=== PATIENT | female | born 2005 | race Caucasian/White ===

== ENCOUNTER 2025-03-18 07:49 | Emergency (ER) | payer MEDICAID ==
[~2025-03-18] VITALS: Ht 157.5 cm; Wt 113.3 kg
[2025-03-18 08:02] VITALS: TEMP 36.8; O2SAT 100
[2025-03-18] MEDS: KETOROLAC 30MG/ML VIAL IM ONE (09:30)
[2025-03-18 09:48] LABS: BASOPHILS % 1.4 % (0.0-2.0); EOSINOPHILS % 3.7 % (0.0-5.0); HEMATOCRIT. 40.6 % (36.0-48.0); HEMOGLOBIN. 13.1 g/dL (12.0-16.0); LYMPHOCYTES % 36.7 % (20.0-50.0); MEAN PLATELET VOLUME 9.1 fl (7.4-10.4); MONOCYTES % 6.7 % (2.0-8.0); NEUTROPHILS % 51.5 % (40.0-76.0); PLATELET 315 x1000/uL (130-400); RED BLOOD CELL COUNT 5.25 mill/uL (4.2-5.4); RED CELL DISTRIBUTION WIDTH 14.7 % (11.6-14.6)
[2025-03-18 10:02] LABS: CREATININE 0.8 mg/dL (0.6-1.0); UREA NITROGEN BLOOD 7 mg/dL (9-23)
[2025-03-18 10:03] LABS: C REACTIVE PROTEIN HIGH SENS 8.65 mg/l (<1.00)
[2025-03-18 10:04] LABS: ASPARTATE AMINOTRANSFERASE 18 IU/L (<34); BILIRUBIN TOTAL 0.4 mg/dL (0.1-1.0); PROTEIN TOTAL 7.2 g/dL (6.0-8.3)
[2025-03-18 10:06] LABS: T4 FREE 1.18 ng/dL (0.89-1.76)
[2025-03-18 10:07] LABS: HCG SCREEN NEGATIVE
[2025-03-18 10:44] LABS: ERYTHROCYTE SEDIMENTATION RATE 6 mm/hr (0-20)
[2025-03-18] MEDS ORDERED: IBUP-2029 MT (11:20)
[2025-03-18 11:29] VITALS: BP 126/80; PULSE 59; RESP 16; O2SAT 100
== END 2025-03-18 11:55 | disposition home or self-care (01) ==
LOC: ER 07:49
DX: R51.9 Headache, unspecified (principal); M79.605 Pain in left leg; M79.604 Pain in right leg; R07.89 Other chest pain
CPT/HCPCS: 80053; 81025; 82550; 84703; 84439; 86141; 84443; 85025; 85651; 36415; 96372; 99283; J1885; Z7610

== ENCOUNTER 2025-04-21 10:59 | Emergency (ER) | payer MEDICAID, OTHER ==
[~2025-04-21] VITALS: Ht 157.5 cm; Wt 105.0 kg
[~2025-04-21 10:59] MED LIST: IBUP-1455 MT
[2025-04-21 11:08] VITALS: O2SAT 99
[2025-04-21 11:27] VITALS: BP 158/89; PULSE 99; RESP 18; TEMP 36.9; O2SAT 99
== END 2025-04-21 12:34 | disposition home or self-care (01) ==
LOC: ER 10:59
DX: R51.9 Headache, unspecified (principal); V99.XXXA Unspecified transport accident, initial encounter; Y93.89 Activity, other specified; Y92.89 Other specified places as the place of occurrence of the external cause; Y99.8 Other external cause status
CPT/HCPCS: 99282

== ENCOUNTER 2025-05-21 11:31 | Emergency (ER) | payer BC, MEDICAID ==
[~2025-05-21] VITALS: Ht 157.5 cm; Wt 123.0 kg
[2025-05-21 11:57] VITALS: TEMP 36.7; O2SAT 98
[2025-05-21] MEDS ORDERED: KETOROLAC 30MG/ML VIAL IM ONE (15:15)
[2025-05-21] MEDS: CYCLOBENZAPRINE 10MG TABLET PO ONE (16:00)
[2025-05-21] MEDS: LIDOCAINE 5% PATCH TOP STA (16:00)
[2025-05-21] MEDS: IBUPROFEN 600MG TABLET PO ONE (16:00)
[2025-05-21] MEDS ORDERED: CYCL10TA21 MT (16:45)
[2025-05-21] MEDS ORDERED: LIDO700A30 TP (16:45)
[2025-05-21] MEDS ORDERED: IBUP-1455 MT (16:45)
[2025-05-21 17:41] VITALS: BP 118/80; PULSE 60; RESP 18; O2SAT 100
== END 2025-05-21 17:45 | disposition home or self-care (01) ==
LOC: ER 11:31
DX: M54.50 Low back pain, unspecified (principal)
CPT/HCPCS: 72100; 81025; 99284

== ENCOUNTER 2025-06-27 07:17 | Emergency (ER) | payer MEDICAID ==
[~2025-06-27] VITALS: Ht 157.5 cm; Wt 122.0 kg
[~2025-06-27 07:17] MED LIST changes: +CYCL10TA21 MT; +LIDO700A30 TP
[2025-06-27 07:26] VITALS: O2SAT 100
[2025-06-27 09:48] VITALS: BP 113/68; PULSE 62; RESP 18; TEMP 36.8; O2SAT 99
== END 2025-06-27 09:50 | disposition home or self-care (01) ==
LOC: ER 07:17
DX: R07.89 Other chest pain (principal); Z79.899 Other long term (current) drug therapy
CPT/HCPCS: 71045; 81025; 93005; 99283

== ENCOUNTER 2025-07-04 08:29 | Emergency (ER) | payer MEDICAID ==
[~2025-07-04] VITALS: Ht 157.5 cm; Wt 117.0 kg
[2025-07-04 08:37] VITALS: TEMP 37; O2SAT 98
[2025-07-04 09:41] LABS: BASOPHILS % 0.8 % (0.0-2.0); EOSINOPHILS % 3.8 % (0.0-5.0); HEMATOCRIT. 40.0 % (36.0-48.0); HEMOGLOBIN. 12.8 g/dL (12.0-16.0); LYMPHOCYTES % 29.3 % (20.0-50.0); MEAN PLATELET VOLUME 9.2 fl (7.4-10.4); MONOCYTES % 4.4 % (2.0-8.0); NEUTROPHILS % 61.7 % (40.0-76.0); PLATELET 273 x1000/uL (130-400); RED BLOOD CELL COUNT 5.17 mill/uL (4.2-5.4); RED CELL DISTRIBUTION WIDTH 14.7 % (11.6-14.6)
[2025-07-04 10:00] LABS: CREATININE 0.8 mg/dL (0.6-1.0); UREA NITROGEN BLOOD 7 mg/dL (9-23)
[2025-07-04 10:02] LABS: HCG SCREEN NEGATIVE; TROPONIN I HIGH SENSITIVITY < 4 ng/L (3.0-34)
[2025-07-04 12:12] VITALS: BP 122/89; PULSE 60; RESP 12; O2SAT 100
== END 2025-07-04 12:16 | disposition home or self-care (01) ==
LOC: ER 08:29
DX: R07.89 Other chest pain (principal); I49.8 Other specified cardiac arrhythmias; Z79.899 Other long term (current) drug therapy
CPT/HCPCS: 36415; 71045; 80048; 80320; 84484; 84703; 85025; 85379; 93005; 99285; G0480

== ENCOUNTER 2025-07-18 09:38 | Emergency (ER) | payer MEDICAID ==
[~2025-07-18] VITALS: Ht 165.1 cm; Wt 109.0 kg
[2025-07-18 09:44] VITALS: O2SAT 96
[2025-07-18 09:47] VITALS: BP 138/74; PULSE 81; RESP 16; TEMP 36.8; O2SAT 95
== END 2025-07-18 11:42 | disposition home or self-care (01) ==
LOC: ER 09:38
DX: M79.671 Pain in right foot (principal)
CPT/HCPCS: 73630; 99283